=== PATIENT | female | born 2000 | race Caucasian/White ===

== ENCOUNTER → 2021-05-23 12:29 | Outpatient (CLI) | payer OTHER, SELFPAY ==
--- NOTE | 2021-05-23 12:34 | DI.US.S_ITS ---
PROCEDURE: US OB <= 14 WEEKS FETUS INDICATIONS: DATING AND VIABILITY OUTSIDE/PRIOR DATING DATA: Last menstrual period (LMP): 03/05/2021 LMP-based estimated date of delivery (JANESSA): 12/10/2021 First dating scan (date and location): 05/23/2021 Estimated date of delivery (JANESSA) from first dating scan: 12/25/2021. TECHNIQUE: Real-time scanning was performed of the fetus and maternal pelvic organs, with image documentation. COMPARISON: None. FINDINGS: Embryo: A single live intrauterine is seen. The measured heart rate is 182 beats per minute. The crown-rump length measures 2.4 cm, corresponding to an estimated gestational age of 9 weeks 1 day. It is too early for detailed anatomic assessment. By visual inspection, the amount of amniotic fluid is within normal limits. No significant findings of subchorionic/perigestational hemorrhage are seen. Measurement variability in dating: +/- 4 weeks by LMP, +/- 7 days by mean sac diameter (use before 6 weeks gestation if crown-rump length not able to be measured), +/- 5 days by crown-rump length (up to 8 weeks 6 days gestation), +/- 7 days by crown-rump length (up to 13 weeks 6 days gestation). Maternal organs: Ovaries are within normal limits, with a presumed corpus luteum seen on the right. IMPRESSION: A single live intrauterine is seen. There is an approximately 2 week discrepancy between the estimated gestational age based upon these images and the estimated gestational age based upon the given date of last menstrual period. Please correlate with precise clinical data. Close clinical followup, with serial beta-hCG and serial ultrasound are recommended, if clinically appropriate. Dictated by: Elie Wall M.D. on 05/23/2021 at 12:40 Approved by: Elie Wall M.D. on 05/23/2021 at 12:41
== END ==
PROVIDERS: Referring Provider Obstetrics & Gynecology; Visit Provider Obstetrics & Gynecology
DX: Z36.87 Encounter for antenatal screening for uncertain dates (principal); Z3A.09 9 weeks gestation of pregnancy
CPT/HCPCS: 76801; 76817

== ENCOUNTER → 2021-06-03 17:07 | Outpatient (CLI) | payer OTHER, SELFPAY ==
[2021-06-03 17:30] LABS: Appearance Urine UA CLEAR; Bilirubin Urine UA NEGATIVE (NEGATIVE); Color Urine UA YELLOW; Glucose Urine UA NEGATIVE (Negative); Ketones Urine UA NEGATIVE (NEGATIVE); Leukocyte Esterase Urine UA NEGATIVE (NEGATIVE); Nitrite Urine UA NEGATIVE (Negative); Occult Blood Urine UA TRACE-LYSED (Negative); Protein Urine UA NEGATIVE (Negative); Specific Gravity Urine UA 1.025 (1.000-1.035); Urobilinogen Urine UA 0.2 E.U./dL (0.2)
[2021-06-03 18:45] LABS: Add Manual Diff / Slide Review NO; Basophils Absolute Auto 0 /uL (0-100); Basophils Percent Auto 0.3 % (0-2); Eosinophils Absolute Auto 200 /uL (0-450); Eosinophils Percent Auto 1.9 % (2-4); Hematocrit 40.1 % (36-46); Hemoglobin 13.8 g/dL (12.0-16.0); Lymphocytes Absolute Auto 2100 /uL (1100-4500); Mean Corpuscular HGB Conc 34.4 % (30-36); Mean Corpuscular Volume 87.1 fL (80-100); Monocytes Absolute Auto 700 /uL (0-900); Monocytes Percent Auto 7.2 % (3-14); Neutrophils Absolute Auto 6600 /uL (1500-7000); Neutrophils Percent Auto 68.6 % (50-75); Platelet Count 293 X10^3/uL (150-400); Red Blood Cell Count 4.61 X10^6/uL (4.0-5.2); Red Cell Distribution Width 13.7 % (11.6-14.8); White Blood Cell Count 9.6 X10^3/uL (4.5-11.0)
[2021-06-03 18:55] LABS: Hepatitis B Surface Antigen NEGATIVE s/c (NEGATIVE); Rubella Antibody IgG 5.9 IU/mL (>15)
[2021-06-03 19:08] LABS: HIV 1 & 2 Ab/Ag 4th Gen Combo NEGATIVE (NEGATIVE); Hep C Virus Ab w/Reflex Quant NEGATIVE s/c (NEGATIVE)
[2021-06-04 08:28] LABS: RPR Screen Non Reactive (Non Reactive)
[2021-06-04 11:27] LABS: Varicella IgG Antibody 997 index (Immune >165)
== END ==
PROVIDERS: Referring Provider Obstetrics & Gynecology; Visit Provider Obstetrics & Gynecology
DX: Z34.01 Encounter for supervision of normal first pregnancy, first trimester (principal)
CPT/HCPCS: 36415; 80055; 81003; 86787; 86803; 86850; 86900; 86901; 87086; 87389

== ENCOUNTER → 2021-07-01 09:13 | Outpatient (CLI) | payer OTHER, MEDICAID, SELFPAY | PROVIDERS: Visit Provider Obstetrics & Gynecology | DX: R39.9 Unspecified symptoms and signs involving the genitourinary system (principal) | CPT/HCPCS: 87086 ==

== ENCOUNTER → 2021-08-05 13:20 | Outpatient (ROUT) | payer OTHER, MEDICAID, SELFPAY ==
[2021-08-05 15:03] LABS: Urine N gonorrhoeae NOT DETECTED
[2021-08-05 15:35] LABS: Urine Chlamydia NOT DETECTED
== END ==
PROVIDERS: Visit Provider Obstetrics & Gynecology
DX: Z34.01 Encounter for supervision of normal first pregnancy, first trimester (principal); Z3A.19 19 weeks gestation of pregnancy
CPT/HCPCS: 87491; 87591

== ENCOUNTER → 2021-08-12 14:07 | Outpatient (CLI) | payer OTHER, MEDICAID, SELFPAY ==
--- NOTE | 2021-08-12 14:07 | DI.US.S_ITS ---
PROCEDURE: US OB >= 14 WEEKS FETUS INDICATIONS: ANATOMY SCAN OUTSIDE/PRIOR DATING DATA: Last menstrual period (LMP): 03/05/2021 . LMP-based estimated date of delivery (JANESSA): 12/10/2021 . First dating scan (date and location): 7821 Estimated date of delivery (JANESSA) from first dating scan: 12/25/2021 . TECHNIQUE: Real-time scanning was performed of the fetus, with image documentation and biometric measurements. COMPARISON: [facility], OB <= 14 WEEKS FETUS, 06/03/2021, 17:01. [facility] OB <= 14 WEEKS FETUS, 05/23/2021, 11:56. [facility], OB >= 14 WEEKS FETUS, 08/05/2021, 8:34. FINDINGS: General: A single living intrauterine gestation is present. Presentation: Breech. Placenta: Placental position is posterior , without previa. Amniotic fluid index: 13.7 cm, normal range is 5-24 cm. heart rate: 150 beats per minute. Maternal cervical canal: 4.0 cm long. Normal lower limit is 2.5 cm. biometrics: Biparietal diameter: 4.6 cm 19 weeks 6 days Head circumference: 17.5 cm 20 weeks 0 days Abdominal circumference: 14.9 cm 20 weeks 1 day Femur length: 3.2 cm 20 weeks 1 day Estimated gestational age from initial scan: 20 weeks 5 days Composite gestational age from present scan: 20 weeks 0 days Estimated weight and percentile: 333 g 17th percentile Measurement variability for biometric dating: +/- 7 days from 14 weeks to 15 weeks 6 days gestation, +/- 10 days from 16 weeks to 21 weeks 6 days gestation, +/- 2 weeks from 22 weeks to 27 weeks 6 days gestation, +/- 3 weeks for 28 weeks gestation or later. weight reference: 4500 g or EFW >90/95% is considered macrosomia or large for gestational age. EFW <10% is small for gestational age. EFW 5% or less is considered intra-uterine growth restriction. Anatomic survey: Neuro: Ventricles are non-dilated at less than 10 mm. Cisterna magna is normal at 3-11 mm. Cerebellum is normal in size and morphology. Nuchal skin fold: Normal at less than 6 mm between 14-21 weeks gestational age. Face: Nose and lips, facial profile are not well visualized. Spine: No evidence for spina bifida. Heart: 4-chambered heart and ventricular outflow tracts are not well visualized.. Diaphragm: Diaphragm is intact. Stomach: Left-sided stomach is present. Kidneys: No hydronephrosis. Normal is less than 5 mm in 2nd trimester, less than 7 mm in 3rd trimester. Cord: 3-vessel cord has what appears to be an eccentric cord insertion approximately 3.1 cm from the placental edge. Bladder: Normal in size. Extremities: All 4 extremities identified. IMPRESSION: 1. Single live intrauterine . 2. Facial profile, nose/lips as well as 4 chambered heart and outflow tracts are not well seen. Recommend interval follow-up for further evaluation. 3. Cord insertion appears to be eccentric approximately 3.1 cm from the placental edge. Interval follow-up is recommended. Dictated by: Wanda Silvestre M.D. on 08/12/2021 at 16:09 Approved by: Wanda Silvestre M.D. on 08/12/2021 at 16:13
== END ==
PROVIDERS: Referring Provider Obstetrics & Gynecology; Visit Provider Obstetrics & Gynecology
DX: Z34.02 Encounter for supervision of normal first pregnancy, second trimester (principal); Z3A.20 20 weeks gestation of pregnancy
CPT/HCPCS: 76811

== ENCOUNTER → 2021-10-14 11:59 | Outpatient (CLI) | payer OTHER, MEDICAID, SELFPAY ==
[2021-10-14 14:55] LABS: Hematocrit 29.3 % (36-46); Hemoglobin 10.1 g/dL (12.0-16.0)
[2021-10-14 15:13] LABS: GTT (PREG) 1 Hour PP 50gm Dose 135 mg/dL (76-139)
== END ==
PROVIDERS: Referring Provider Obstetrics & Gynecology; Visit Provider Obstetrics & Gynecology
DX: Z34.02 Encounter for supervision of normal first pregnancy, second trimester (principal); Z3A.26 26 weeks gestation of pregnancy
CPT/HCPCS: 36415; 82950; 85014; 85018

== ENCOUNTER → 2021-12-02 15:56 | Outpatient (CLI) | payer OTHER, MEDICAID, SELFPAY ==
[2021-12-03 12:10] LABS: Strep Grp B PCR NEG for Grp B Strep
== END ==
PROVIDERS: Referring Provider Obstetrics & Gynecology; Visit Provider Obstetrics & Gynecology
DX: Z34.03 Encounter for supervision of normal first pregnancy, third trimester (principal); Z3A.36 36 weeks gestation of pregnancy
CPT/HCPCS: 87653

== ENCOUNTER 2021-12-09 15:03 | Outpatient (CLI) | payer OTHER, MEDICAID, SELFPAY | END 2021-12-09 15:55 | disposition home or self-care (01) | LOC: OB 12-10 07:34 | PROVIDERS: Referring Provider Obstetrics & Gynecology; Visit Provider Obstetrics & Gynecology | DX: O36.8130 Decreased fetal movements, third trimester, not applicable or unspecified (principal); Z3A.37 37 weeks gestation of pregnancy | CPT/HCPCS: 59025; G0378; G0379 ==

== ENCOUNTER → 2021-12-16 13:48 | Outpatient (CLI) | payer OTHER, MEDICAID, SELFPAY ==
[2021-12-16 14:34] LABS: COVID19 -Nasal RAPID Negative (Negative)
== END ==
PROVIDERS: PCP Physician Assistant; Referring Provider Obstetrics & Gynecology; Visit Provider Obstetrics & Gynecology
DX: Z01.812 Encounter for preprocedural laboratory examination (principal); Z20.822 Contact with and (suspected) exposure to COVID-19
CPT/HCPCS: 87635

== ENCOUNTER 2021-12-19 05:59 | Inpatient (IN) | payer OTHER, MEDICAID, SELFPAY ==
[2021-12-19 06:32] VITALS: BP 134/91
[2021-12-19 07:08] LABS: COVID19 -Nasal RAPID Negative (Negative)
--- NOTE | 2021-12-19 07:17 | SUR.OPER ---
Supine on Padded OR bed, head on pillow, safety belt at thigh, arms secured on padded arm boards at <90 degrees abduction. Bump under right buttock. Legs uncrossed with pillow under knees, gel pad to heels, tape over blanket to lower legs.
[2021-12-19] MEDS: ACETAMINOPHEN 325 MG TABLET 975 MG PO (07:52)
[2021-12-19] MEDS: CITRIC ACID/SODIUM CITRATE 15 ML SOLUTION 30 ML PO (07:52)
--- NOTE | 2021-12-19 08:29 | PM.HP.1 ---
History of Present Illness History of Present Illness Date Patient Seen: 12/19/21 Time Patient Seen: 08:29 Chief complaint: PRIMARY Narrative: Patient is a 21-year-old 1 para 0 at 39 weeks gestation who presents for a scheduled primary section at patient request. Patient History Medical History (Updated 08/31/21 @ 06:24 by Humera Terrazas MD) Anxiety Asthma Concussion Gastric peptic ulcer History of being hospitalized Hx of migraines Kidney infection (~2018) Kidney stones (~2018) Pneumonia (~1997) Reactive airway disease Right ovarian cyst (~03/2020) Toes fractured Tremors of nervous system (~03/2021) UTI (urinary tract infection) (~2018) Surgical History (Updated 05/27/21 @ 10:43 by Linh Gonzalez RN) S/P wisdom tooth extraction Family & Social History Family History (Updated 05/27/21 @ 10:51 by Linh Gonzalez RN) Father H/O alcohol dependence Mother Mental health problem Eczema Carpal tunnel syndrome Grandfather Diabetes mellitus Cancer Prostate cancer CVA (cerebral vascular accident) Family disruption due to marital estrangement Grandmother Heavy smoker Spina bifida Diabetes mellitus Grandfather Hypertension Hyperlipidemia Diabetes mellitus Myocardial infarction Cardiac anomaly Grandmother Cancer Late gastric cancer Sister Hypertension induced hypertension Carpal tunnel syndrome Eczema Sister Spina bifida Eczema Brother Asthma Obesity Family/Other Obesity H/O alcohol dependence Hypertension Family/Other Myocardial infarction Social History: household members significant other lives independently Yes Tobacco & Substance use: Smoking Status Never smoker alcohol intake former Meds Home Medications and Allergies Home Medications Medication Instructions Recorded Confirmed Type prenat.vits,noemi,gij-ubnn-ejkdp 1 tab PO DAILY 06/03/21 12/16/21 History Allergies Allergy/AdvReac Type Severity Reaction Status Date / Time [place] And Derivatives AdvReac Intermediate Lips Verified 12/16/21 13:47 swollen and burning. Hives. Exam Vital Signs (past 8 hours): - 12/19/21 06:32 Blood Pressure 134/91 H Narrative Exam Narrative: HEENT: No thyromegaly, no anterior cervical or supraclavicular lymphadenopathy. Lungs:Clear to auscultation bilaterally, no wheezes. Cardiovascular: Regular rate and rhythm, no murmurs, rubs, or gallops. Abdomen: No scars. No hepatosplenomegaly. No masses palpable. Fundal height: 39 cm. Estimated weight 7-1/2 lb External genitalia: Normal Vagina: Normal Cervix: Normal Extremities: No edema, 1+ DTRs Objective Labs Labs: Laboratory Results - last 24 hr 12/19/21 06:35 SARS-CoV-2 (PCR) Negative Assessment & Plan Assessment & Plan narrative: Assessment: 21-year-old 1 para 0 at 39 weeks gestation who desires a primary section for mode of delivery Plan: Primary low-transverse section The risks, benefits, and alternatives to the procedure were explained to the patient. The risks including bleeding, infection, injury to the bowel, bladder, or ureters. She understands these risks and agrees to proceed. A full par Q was held and consent form was signed. COVID-19 COVID-19 status: Negative Result date/Date tested (Pos, Neg/Pending): 12/19/21 Time Spent With Patient Time with patient: less than 30 minutes Critical Care time: I spent a total of [] minutes of critical care time on this patient's care today; this time is exclusive of procedural time.
[2021-12-19] MEDS: LACTATED RINGERS 1,000 ML 1000 ML IV (08:31)
--- NOTE | 2021-12-19 08:31 | PM.PREOP ---
Pre-operative Note COVID-19 COVID-19 status: Negative Result date/Date tested (Pos, Neg/Pending): 12/19/21 Criteria for continued procedure: Deterioration of the patient's condition or overall health Interval Note History & Physical reviewed/Exam performed by Physician: Yes Changes to H&P: No H&P completed within 30 days and has changed as indicated here:: 12/19/21
[2021-12-19] MEDS: CEFAZOLIN 2 GM/20 ML SYRINGE IV ×2 (08:53→09:16)
--- NOTE | 2021-12-19 09:21 | SUR.OPER ---
Viable female delivered via section at 09:07. Cord blood vials x2 and placenta sent with L&D RN.
[2021-12-19 09:46] VITALS: BP 109/62; PULSE 72; RESP 14; TEMP 36.3; O2SAT 100
[2021-12-19 09:47] LABS: Add Manual Diff / Slide Review NO; Basophils Absolute Auto 0 /uL (0-100); Basophils Percent Auto 0.3 % (0-2); Eosinophils Absolute Auto 300 /uL (0-450); Eosinophils Percent Auto 3.3 % (2-4); Hematocrit 34.8 % (36-46); Hemoglobin 11.9 g/dL (12.0-16.0); Lymphocytes Absolute Auto 2600 /uL (1100-4500); Lymphocytes Percent Auto 24.5 % (25-40); Mean Corpuscular HGB Conc 34.1 % (30-36); Mean Corpuscular Hemoglobin 28.3 PG (26-34); Monocytes Absolute Auto 900 /uL (0-900); Monocytes Percent Auto 8.1 % (3-14); Neutrophils Absolute Auto 6700 /uL (1500-7000); Neutrophils Percent Auto 63.8 % (50-75); Platelet Count 187 X10^3/uL (150-400); Red Blood Cell Count 4.19 X10^6/uL (4.0-5.2); Red Cell Distribution Width 18.7 % (11.6-14.8); White Blood Cell Count 10.5 X10^3/uL (4.5-11.0)
[2021-12-19] MEDS: LACTATED RINGERS 1,000 ML 120 ML IV (09:50)
[2021-12-19 09:51] VITALS: BP 104/54; PULSE 77; RESP 16; O2SAT 99
[2021-12-19 09:56] VITALS: BP 116/52; PULSE 75; RESP 11; O2SAT 100
--- NOTE | 2021-12-19 09:57 | PM.OBCS.1 ---
Operative Date/Time/Diagnoses Date of procedure: 12/19/21 Time of procedure: 09:57 Pre-op diagnosis: Thirty-nine weeks gestation Desires primary section Post-op diagnosis: same Procedure & Clinicians Procedure: Primary low-transverse section Same procedure as scheduled: Yes Indications: 39 weeks gestation Desires primary section Surgeon: Humera Figueroa Yes if Unassisted: No Embossing Toolsetter: Emerald Kramer Reason for Embossing Toolsetter: Embossing Toolsetter was required for retraction, clipping of suture, assist in delivery of the baby, and closure of the contralateral fascia Anesthesia Type: Spinal (With Duramorph) Operative Notes Findings: Live female infant in the direct occiput posterior presentation Double nuchal cord Closure Type: primary Specimen(s): cord blood and placenta Intraoperative meds administered: Acetaminophen, Duramorph, Ketorolac and Pitocin Applied: Catheter Estimated Blood Loss (mL): 400 Blood products transfused: none Procedure in detail: The patient was taken to the operating room where she was placed in the seated position. Spinal anesthesia with Duramorph was administered. She was then placed in the dorsal supine position with a leftward tilt. She was prepped and draped in the usual sterile fashion. A timeout was performed. After spinal analgesia was found to be adequate, a Pfannenstiel skin incision was made 2 fingerbreadths above the pubic symphysis and carried through to the underlying layer fascia. The fascia was nicked in the midline, and the incision extended bilaterally with the Fry scissors. The superior aspect of the fascial incision was grasped with a [place] clamps, elevated, and the underlying rectus muscles dissected off sharply and bluntly. Attention was then turned to the inferior aspect of this incision which in a similar fashion was grasped with a [place] clamps, elevated, and the underlying rectus muscles dissected off sharply and bluntly. The rectus muscles were in the midline. The peritoneum was identified, grasped between 2 hemostats, and entered sharply with the Metzenbaum scissors. This incision was extended superiorly and inferiorly with good visualization of the bladder. The bladder blade was inserted. The vesicouterine peritoneum was identified, grasped with the pickup, and entered sharply with the Metzenbaum scissors. This incision was extended bilaterally, and the bladder flap was created digitally. The bladder blade was reinserted. The lower uterine segment was incised in a transverse fashion with the scalpel. Upon entering the amniotic sac there was a small amount of clear amniotic fluid. The infant's head was delivered with vacuum assistance. The nose and mouth were suctioned with bulb suction. The remainder of the body delivered without difficulty. The cord was double clamped and cut after 1 minute. The was handed off to waiting RN and RT. The placenta was delivered manually. The uterus was cleared of all clots and debris. The uterine incision was repaired with #1 chromic in a running interlocking fashion, and a second layer the same suture was used for an imbricating layer. Hemostasis was achieved. The tubes and ovaries were examined and were found to be normal. The gutters were cleared of all clots and debris. The bladder flap was reapproximated using 2-0 Vicryl in a running fashion. The parietal peritoneum was closed using 2-0 Vicryl in a running fashion. The fascia was reapproximated using 0 Vicryl in a running fashion. Subcutaneous layer was copiously irrigated with warm normal saline. 5 simple interrupted sutures of 3-0 Vicryl were placed to reapproximate the subcutaneous layer. The skin was closed with 4-0 Monocryl in a subcuticular fashion. Steri-Strips were placed. An Aquacel dressing was placed. The uterus was expressed of a small amount of old blood. Sponge, lap, and instrument counts were correct x-2. The patient tolerated the procedure well, and was taken to PACU in stable condition. Complications: none [place] Baby 1: Gender: Female Presentation: vertex Position: Occiput Posterior Placental Delivery Description: Spontaneous and Manual Removal Cord Vessel Description: 3 Vessels and Nuchal Cord (X2) score (1 min): 8 score (5 min): 9 weight: 9 lb 3 oz Post-operative Condition: stable Disposition: PACU Aftercare: routine postop
[2021-12-19 10:01] VITALS: BP 108/47; PULSE 75; RESP 14; TEMP 36.3; O2SAT 100
--- NOTE | 2021-12-19 10:26 | SUR.PHASEI ---
Patient transferred to Center by this Rn in bed with stable VS and request to go and see baby SPENCER. SBAR repot at bedside Da Rn and Cherelle RN with fundal check and negar-pad check. Bed locked, dad and mom at bedside with baby.
[2021-12-19] MEDS: KETOROLAC 30 MG/ML VIAL IV ×2 (16:00→21:58)
[2021-12-19] MEDS: ACETAMINOPHEN 325 MG TABLET 650 MG PO ×2 (16:05→21:57)
[2021-12-19] MEDS: LACTATED RINGERS 1,000 ML 100 ML IV (16:37)
[2021-12-20] MEDS: KETOROLAC 30 MG/ML VIAL IV (03:57)
[2021-12-20] MEDS: ACETAMINOPHEN 325 MG TABLET 650 MG PO ×2 (03:58→11:36)
[2021-12-20 07:09] LABS: Hematocrit 30.1 % (36-46); Hemoglobin 10.5 g/dL (12.0-16.0)
[2021-12-20 10:42] VITALS: BP 118/76; PULSE 87; RESP 16; TEMP 36.7
[2021-12-20] MEDS: IBUPROFEN 600 MG TABLET PO (11:35)
[2021-12-20] MEDS: PRENATAL VIT,CALC/IRON/FOLIC 1 TABLET 1 TAB PO (11:36)
[2021-12-20] MEDS: DOCUSATE 100 MG CAPSULE 200 MG PO (11:36)
--- NOTE | 2021-12-20 12:43 | P.PNOB_ITS ---
Subjective - OB Subjective Patient comments: no complaints, pain well controlled, tolerating diet and flatus present baby status: doing well and nursing well [place] feeding status: exclusively breast feeding Date Patient Seen: 12/20/21 Time Patient Seen: 12:44 Interval history: Patient is a 21-year-old 1 para 1 who presented on December 19, 2021 for a scheduled primary low-transverse section. She underwent this procedure without complication. Her course was unremarkable and she is discharged to home on day # 1. She is tolerating a diet. going well. Her pain is well controlled. No nausea or vomiting. And she is voiding without the catheter. She is to follow-up in 1 week for an Aquacel dressing removal. Exam Vital Signs (past 8 hours): - 12/20/21 10:42 Temperature 98.0 F Pulse Rate 87 Respiratory Rate 16 Blood Pressure 118/76 Oxygen Delivery Method Room Air Narrative Exam Narrative: Generally: Patient is sitting up in chair, no acute distress Lungs: Clear to auscultation bilaterally Cardiovascular: Regular rate and rhythm Fundus: Firm at U Incision: Clean dry and intact with Aquacel dressing Extremities: Trace edema, negative [place] Objective Labs Result Diagrams: 12/20/21 06:30 Labs: Laboratory Results - last 24 hr 12/20/21 06:30 Hgb 10.5 L Hct 30.1 L Assessment & Plan Plan day: 1 plan OB: discharge home Comments: Follow-up 1 week for Aquacel dressing removal Follow-up [address] Terrazas for 6 week exam Time Spent With Patient Time: Total time spent is greater than 50% in coordination of care (as documented) at patient's floor/unit and/or counseling patient: Time with patient: 15-24 minutes
== END 2021-12-20 13:00 | disposition home or self-care (01) | DRG 788 ==
PROVIDERS: Admitting Provider Obstetrics & Gynecology; PCP Physician Assistant; Referring Provider Obstetrics & Gynecology; Visit Provider Obstetrics & Gynecology
PROC: 10D00Z1 Extraction of Products of Conception, Low, Open Approach (ICD-10-PCS; CPT 59514; principal; 2021-12-19 07:45)
DX: O99.513 Diseases of the respiratory system complicating pregnancy, third trimester (principal); J45.909 Unspecified asthma, uncomplicated; Z3A.39 39 weeks gestation of pregnancy; Z37.0 Single live birth; Z20.822 Contact with and (suspected) exposure to COVID-19
CPT/HCPCS: 36415; 59050; 59510; 59514; 85014; 85018; 85025; 86850; 86900; 86901; 87635; C9803; J0690; J1885; J2274; J2590

== ENCOUNTER → 2024-10-26 09:17 | Outpatient (CLI) | payer OTHER, MEDICAID, SELFPAY ==
[2024-10-26 11:45] LABS: HCG Quantitative /Beta subunit 1396.2 mIU/mL
== END ==
PROVIDERS: PCP Physician Assistant; Referring Provider Obstetrics & Gynecology; Visit Provider Obstetrics & Gynecology
DX: Z87.59 Personal history of other complications of pregnancy, childbirth and the puerperium (principal)
CPT/HCPCS: 36415; 84702

== ENCOUNTER → 2024-10-28 10:32 | Outpatient (CLI) | payer OTHER, MEDICAID, SELFPAY ==
[2024-10-28 11:44] LABS: HCG Quantitative /Beta subunit 2714.6 mIU/mL
== END ==
PROVIDERS: PCP Physician Assistant; Referring Provider Obstetrics & Gynecology; Visit Provider Obstetrics & Gynecology
DX: Z87.59 Personal history of other complications of pregnancy, childbirth and the puerperium (principal)
CPT/HCPCS: 36415; 84702

== ENCOUNTER → 2024-11-23 11:37 | Outpatient (CLI) | payer OTHER, SELFPAY ==
[2024-11-23 14:47] LABS: Urine N gonorrhoeae NOT DETECTED
[2024-11-23 14:48] LABS: Urine Chlamydia NOT DETECTED
== END ==
PROVIDERS: PCP Physician Assistant; Visit Provider Specialist
DX: Z11.3 Encounter for screening for infections with a predominantly sexual mode of transmission (principal); Z34.81 Encounter for supervision of other normal pregnancy, first trimester
CPT/HCPCS: 87491; 87591

== ENCOUNTER → 2024-12-01 11:59 | Outpatient (CLI) | payer OTHER, SELFPAY ==
[2024-12-01 12:38] LABS: Add Manual Diff / Slide Review NO; Basophils Absolute Auto 0 /uL (0-100); Basophils Percent Auto 0.3 % (0-2); Eosinophils Absolute Auto 100 /uL (0-450); Eosinophils Percent Auto 1.3 % (2-4); Hemoglobin 12.2 g/dL (12.0-16.0); Lymphocytes Absolute Auto 2500 /uL (1100-4500); Lymphocytes Percent Auto 29.8 % (25-40); Mean Corpuscular HGB Conc 33.8 % (30-36); Mean Corpuscular Hemoglobin 26.6 PG (26-34); Mean Corpuscular Volume 78.6 fL (80-100); Monocytes Absolute Auto 600 /uL (0-900); Monocytes Percent Auto 6.9 % (3-14); Neutrophils Absolute Auto 5100 /uL (1500-7000); Neutrophils Percent Auto 61.7 % (50-75); Platelet Count 321 X10^3/uL (150-400); Red Blood Cell Count 4.59 X10^6/uL (4.0-5.2); White Blood Cell Count 8.3 X10^3/uL (4.5-11.0)
[2024-12-01 12:47] LABS: Anisocytosis 1+
[2024-12-01 16:53] LABS: Hepatitis B Surface Antigen NEGATIVE s/c (NEGATIVE)
[2024-12-01 17:13] LABS: HIV 1 & 2 Ab/Ag 4th Gen Combo NEGATIVE (NEGATIVE); Hep C Virus Ab w/Reflex Quant NEGATIVE s/c (NEGATIVE)
== END ==
PROVIDERS: Obstetrics & Gynecology; Referring Provider Specialist; Visit Provider Specialist
DX: Z34.81 Encounter for supervision of other normal pregnancy, first trimester (principal)
CPT/HCPCS: 36415; 80055; 86787; 86803; 86850; 86900; 86901; 87389

== ENCOUNTER → 2025-02-10 08:28 | Outpatient (CLI) | payer OTHER, SELFPAY ==
--- NOTE | 2025-02-10 08:29 | DI.US.S_ITS ---
PROCEDURE: US OB >= 14 WEEKS FETUS INDICATIONS: ANATOMY OUTSIDE/PRIOR DATING DATA: Last menstrual period (LMP): 09/22/2024 LMP-based estimated date of delivery (JANESSA): 06/29/2025 First dating scan (date and location): 11/23/2024 Estimated date of delivery (JANESSA) from first dating scan: Report not available The calculations are made using the JANESSA of 06/29/2025. TECHNIQUE: Real-time scanning was performed of the fetus, with image documentation and biometric measurements. Endovaginal scanning: Not performed COMPARISON: [facility], , OB <= 14 WEEKS FETUS, 11/23/2024, 11:40. [facility], OB <= 14 WEEKS FETUS, 12/22/2024, 12:13. [facility], , OB >= 14 WEEKS FETUS, 10/21/2021, 16:38. FINDINGS: General: A single living intrauterine gestation is present. Presentation: Vertex Placenta: Placental position is anterior, without previa. Amniotic fluid index: 11.9 cm, normal range is 5-24 cm. Single deepest vertical pocket is 4.8 cm. heart rate: 152 beats per minute. Maternal cervical canal: 4.4 cm long. Normal lower limit is 2.5 cm. biometrics: Biparietal diameter: 4.4 cm, 19 weeks 3 days Head circumference: 16.6 cm, 19 weeks 2 days Abdominal circumference: 14.5 cm, 19 weeks 6 days Femur length: 3.3 cm, 20 weeks 3 days Clinically estimated gestational age: 20 weeks 1 day Composite gestational age from present scan: 19 weeks 5 days Estimated weight and percentile: 326 g, 37th percentile Anatomic survey: Neuro: Ventricles are non-dilated at less than 10 mm. Cisterna magna is normal at 3-11 mm. Cerebellum is normal in size and morphology. Nuchal skin fold: Normal at less than 6 mm between 14-21 weeks gestational age. Face: Nose and lips, facial profile are normal. Spine: No evidence for spina bifida. Heart: 4-chambered heart is present, with normal ventricular outflow tracts. Diaphragm: Diaphragm is intact. Stomach: Left-sided stomach is present. Kidneys: No hydronephrosis. Normal is less than 5 mm in 2nd trimester, less than 7 mm in 3rd trimester. Cord: 3-vessel cord has orthotopic insertion. Bladder: Normal in size. Extremities: All 4 extremities identified. IMPRESSION: 1. Single live intrauterine with appropriate interval growth. 2. anatomic survey is within normal limits. Approved by: Darius Huerta M.D. on 02/10/2025 at 16:17
== END ==
LOC: US 08:28
PROVIDERS: Referring Provider Obstetrics & Gynecology; Visit Provider Obstetrics & Gynecology
DX: Z36.89 Encounter for other specified antenatal screening (principal); Z3A.19 19 weeks gestation of pregnancy
CPT/HCPCS: 76811

== ENCOUNTER → 2025-02-16 10:55 | Outpatient (CLI) | payer OTHER, SELFPAY | PROVIDERS: Referring Provider Specialist; Visit Provider Specialist | DX: Z34.82 Encounter for supervision of other normal pregnancy, second trimester (principal); Z3A.21 21 weeks gestation of pregnancy | CPT/HCPCS: 36415; 82105 ==

== ENCOUNTER → 2025-03-16 14:21 | Outpatient (CLI) | payer OTHER, SELFPAY ==
[2025-03-16 16:36] LABS: Hematocrit 31.5 % (36-46); Hemoglobin 11.3 g/dL (12.0-16.0)
[2025-03-16 16:47] LABS: GTT (PREG) 1 Hour PP 50gm Dose 108 mg/dL (76-139)
== END ==
PROVIDERS: Referring Provider Specialist; Visit Provider Specialist
DX: Z34.92 Encounter for supervision of normal pregnancy, unspecified, second trimester (principal); Z3A.26 26 weeks gestation of pregnancy
CPT/HCPCS: 36415; 82950; 85014; 85018

== ENCOUNTER → 2025-05-30 14:17 | Outpatient (CLI) | payer OTHER, SELFPAY | PROVIDERS: Visit Provider Obstetrics & Gynecology | DX: Z34.83 Encounter for supervision of other normal pregnancy, third trimester (principal); Z3A.35 35 weeks gestation of pregnancy | CPT/HCPCS: 87086 ==

== ENCOUNTER 2025-06-09 15:01 | Outpatient (CLI) | payer OTHER, SELFPAY ==
[2025-06-09 16:20] LABS: Appearance Urine UA CLEAR; Bilirubin Urine UA NEGATIVE (NEGATIVE); Color Urine UA YELLOW; Glucose Urine UA 3+ g/dL (Negative); Ketones Urine UA 1+ (NEGATIVE); Leukocyte Esterase Urine UA NEGATIVE (NEGATIVE); Nitrite Urine UA NEGATIVE (Negative); Occult Blood Urine UA NEGATIVE (Negative); Protein Urine UA NEGATIVE (Negative); Specific Gravity Urine UA 1.015 (1.000-1.035); Urobilinogen Urine UA 1.0 E.U./dL (0.2)
[2025-06-09 16:21] LABS: pH Urine UA 6.0 (4.5-8.0)
[2025-06-09 16:27] LABS: Culture Indicated Urine Cult Not Indicated
== END 2025-06-09 16:38 | disposition home or self-care (01) ==
LOC: OB 06-12 08:39
PROVIDERS: PCP Physician Assistant; Referring Provider Obstetrics & Gynecology; Visit Provider Obstetrics & Gynecology
DX: O26.893 Other specified pregnancy related conditions, third trimester (principal); N89.8 Other specified noninflammatory disorders of vagina; R10.2 Pelvic and perineal pain; Z3A.37 37 weeks gestation of pregnancy
CPT/HCPCS: 59025; 81001; G0378; G0379

== ENCOUNTER → 2025-06-14 14:57 | Outpatient (CLI) | payer OTHER, SELFPAY ==
[2025-06-15 15:30] LABS: Strep Grp B PCR NEG for Grp B Strep
== END ==
PROVIDERS: PCP Physician Assistant; Visit Provider Obstetrics & Gynecology
DX: Z34.83 Encounter for supervision of other normal pregnancy, third trimester (principal); Z3A.37 37 weeks gestation of pregnancy
CPT/HCPCS: 87653

== ENCOUNTER 2025-06-22 05:35 | Inpatient (IN) | payer OTHER, SELFPAY ==
--- NOTE | 2025-06-22 | PATH_ITS ---
[facility] Accession Number: [id number] No. of containers..01 Tissue . 01 Material submitted: . fallopian tube - BILATERAL FALLOPIAN TUBES . 01 Diagnosis: BILATERAL FALLOPIAN TUBES: First-described fallopian tube, complete cross-sections; negative for significant atypia. Second-described fallopian tube, complete cross-sections; negative for significant atypia. [facility] 06/28/2025 1501 Local . 01 Electronically signed: . Babs Trinidad MD, Pathologist NPI- [id number] . 01 Gross description: . Received in formalin with two identifiers and bilateral fallopian tubes, are two undesignated fallopian tubes. The first fallopian tube is 8.5 cm long by 0.5 cm in diameter. The second fallopian tube is 8.2 cm long by 0.5 cm in diameter. The serosa is purple-dutta and smoth. The cut surfaces are brown with a pinpoint lumen. Parachutist/Combatant Diver Qualified sections are submitted as follows: A1: First fallopian tube with entire fimbriated end. A2: Second fallopian tube with entire fimbriated end. ([id number]) /MARTIN 06/23/2025 1928 Local . 01 Pathologist provided ICD-10: Z30.2 . 01 CPT . 112474 Specimen Comment: A courtesy copy of this report has been sent to [phone] Performed at: [address] [id number] MD Roosevelt Florez MD Phone: [phone]
[2025-06-22] MEDS: LACTATED RINGERS 1,000 ML 999 ML IV ×2 (06:15→07:45)
[2025-06-22 06:33] VITALS: BP 118/78
[2025-06-22 06:45] LABS: Add Manual Diff / Slide Review NO; Hematocrit 34.6 % (36-46); Hemoglobin 12.5 g/dL (12.0-16.0); Lymphocytes Absolute Auto 2000 /uL (1100-4500); Mean Corpuscular HGB Conc 36.0 % (30-36); Mean Corpuscular Hemoglobin 32.6 PG (26-34); Mean Corpuscular Volume 90.7 fL (80-100); Platelet Count 192 X10^3/uL (150-400)
--- NOTE | 2025-06-22 07:24 | PM.OBHP.IH.1 ---
OB HPI Date/Time Date of admission: 06/22/25 Date Patient Seen: 06/22/25 Time Patient Seen: 07:05 History of Present Condition Chief complaint: Repeat , scar revision, kendy salpingectomy JANESSA Calculator Estimated Delivery Date Method Current WG Current Estimate 06/29/25 LMP (Certain) 39w 0d Other Estimates 07/01/25 Ultrasound #1 38w 5d Estimated Gestational Age (weeks): 39 : 3 Para: 1 care: good care, initiated at week # (8), number of visits (10) and pounds weight gain (47) Dating criteria OB: LMP confirmed by 1st trimester US Ultrasounds: normal 1st trimester US and normal mid trimester US Obstetrical complications: other (Globular placental mass in the first trimester, resolved) Medical complications OB: none Indications Operative indications ( section): previous uterine surgery Preadmission Labs Last OB Lab Results: Blood Type A Positive Today, 06:15 Antibody Screen Negative Today, 06:15 Hct, (36-46) 34.6 % L Today, 06:15 Hgb, (12.0-16.0) 12.5 g/dL Today, 06:15 Hep Bs Antigen, (NEGATIVE) Negative s/c 12/01/24, 12:04 Hepatitis C Antibody, (NEGATIVE) Negative s/c 12/01/24, 12:04 Rubella Antibody, (>15) 46.0 IU/mL 12/01/24, 12:04 VZV IgG Antibody, (Non Reactive) Reactive 12/01/24, 12:04 Glucose 1 Hr 50 gm, (76-139) 108 mg/dL 03/16/25, 15:39 Group B Strep (PCR) Neg for grp b strep 06/14/25, 15:00 -: Chlamydia screen: negative, Gonorrhea screen: negative and Urine: negative -: PAP smear: Normal Genetic Screens: Cell-free DNA: Normal (Normal female) and Alpha-fetoprotein: Normal External Labs -: Urine: negative Prior (ies) Past Pregnancies Del. Date GA/Weeks Labor Lgth Wt Sex Route Outcome Anesthesia Place Delv Breastfeed Preg Comp Name 12/19/21 39.1 9 lb 3 oz Female live - full term [facility] 2+ years [place] 11/16/22 ~8 Delivery Date: 12/19/21 Last Updated by: Humera Terrazas MD Primary elective C section Delivery Date: 11/16/22 Last Updated by: Alejandra Carpenter RN blighted ovum, missed AB, needed Rx ~10 wk to complete, no return of menses for several months after Evaluation Evaluation Baseline heart rate: 135 Variability: Moderate (6-25) monitor accelerations: Present Monitor Decelerations: Absent Status: Category l PFSH Medical History (Updated 04/14/25 @ 10:29 by Humera Terrazas MD) Tremors of nervous system (~03/2021) Anxiety Right ovarian cyst (~03/2020) Kidney stones (~2018) Kidney infection (~2018) UTI (urinary tract infection) (~2018) Gastric peptic ulcer Pneumonia (~1997) Asthma Concussion History of being hospitalized Toes fractured Surgical History (Updated 01/19/25 @ 09:04 by Humera Terrazas MD) History of section (12/19/21) S/P wisdom tooth extraction Family History (Updated 10/31/24 @ 08:10 by Alejandra Carpenter RN) Father H/O alcohol dependence Mother Mental health problem Eczema Carpal tunnel syndrome Grandfather Diabetes mellitus Cancer Prostate cancer CVA (cerebral vascular accident) Family disruption due to marital estrangement Grandmother Heavy smoker Spina bifida Diabetes mellitus Dementia Grandfather Hypertension Hyperlipidemia Diabetes mellitus Myocardial infarction Cardiac anomaly Grandmother Cancer Late gastric cancer Sister Hypertension induced hypertension Carpal tunnel syndrome Eczema Sister Spina bifida Eczema Brother Asthma Obesity Family/Other Obesity H/O alcohol dependence Hypertension Aunt Myocardial infarction Social History marital status: unmarried,living together number of children: 1 household members: significant other lives independently: Yes caregiver/support person: Yes housing: house pets and animals: Yes (cat, dog, hamster ) education level: college occupational status: employed current occupational exposures/hazards: Yes luis carlos/restorationism: [employer] special luis carlos needs: No travel history: over 6 months ago seatbelt use: always helmet use: Yes water heater temp set < 120 deg: Yes working smoke detector in home: Yes fire extinguisher in home: Yes carbon monox detector in home: Yes firearms in home: Yes firearms unloaded and locked: Yes do you feel safe at home: Yes Smoking Status: Never smoker second hand exposure: No alcohol intake: former substance use type: does not use during the past year weight has: other well-balanced diet: daily or most days daily servings fruits/ve or more times/day caffeine: Yes (stopped Red Bull since becoming ) Type(s) of exercise: walking Meds Home Medications and Allergies Home Medications ?Medication ?Instructions ?Recorded ?Confirmed ?Type prenat.vits,noemi,dni-mvht-yzric 1 tab PO DAILY 06/03/21 06/22/25 History ferrous sulfate 137 mg (45 mg 137 mg PO DAILY 06/22/25 06/22/25 History iron) tablet,extended release (Slow Fe) Allergies Allergy/AdvReac Type Severity Reaction Status Date / Time [place] And Derivatives Allergy Intermediate Lips Verified 06/22/25 06:18 swollen and burning. Hives. OB Exam Narrative Exam Narrative: Generally: Patient is sitting up in bed, no acute distress Lungs: Clear to auscultation bilaterally Cardiovascular: Regular rate and rhythm Fundal height: 39 cm Estimated weight: 8-1/2 lb Extremities: No edema Objective Labs 06/22/25 06:15 Labs: Laboratory Results - last 24 hr 06/22/25 06:15 WBC 10.3 RBC 3.82 L Hgb 12.5 Hct 34.6 L MCV 90.7 MCH 32.6 MCHC 36.0 RDW 12.9 Plt Count 192 Neut % (Auto) 70.5 Lymph % (Auto) 19.3 L Teller % (Auto) 8.0 Eos % (Auto) 1.1 L Baso % (Auto) 1.1 Neut # (Auto) 7300 H Lymph # (Auto) 2000 Teller # (Auto) 800 Eos # (Auto) 100 Baso # (Auto) 100 Assessment and Plan Assessment and Plan Assessment and Plan narrative: Assessment: 24-year-old 3 para 1 at 39 weeks gestation with a previous section Desires permanent sterilization Keloid scar Plan: Repeat low-transverse section Bilateral salpingectomy Revision of scar The risks, benefits, and alternatives to the procedure were explained to the patient. The risks including bleeding, infection, injury to the bowel, bladder, or ureters. She understands these risks and agrees to proceed. A full par Q was held and consent form was signed. Time-Based Coding :: [TOTAL MINUTES] spent with patient and on the chart (including review of chart, obtaining history, exam, reviewing outside data, placing orders, documenting exam and treatment plan, and counseling patient) on [DATE].
--- NOTE | 2025-06-22 07:29 | PM.PREOP ---
Pre-operative Note Interval Note History & Physical reviewed/Exam performed by Physician: Yes Changes to H&P: No H&P completed within 30 days and has changed as indicated here:: 06/22/25
[2025-06-22] MEDS: CITRIC ACID/SODIUM CITRATE 15 ML SOLUTION 30 ML PO (07:33)
[2025-06-22] MEDS: CEFAZOLIN 2 GM/100 ML PREMIX 100 ML IV (07:45)
--- NOTE | 2025-06-22 08:23 | SUR.OPER ---
Supine on padded OR bed, head on pillow, arms on padded arm boards at <90 degrees abduction, legs uncrossed, safety belt at thigh, tape over blanket over lower legs, bump under right hip
[2025-06-22] MEDS: TRIAMCINOLONE 40 MG/ML VIAL IM (08:29)
[2025-06-22 09:15] VITALS: BP 92/53; PULSE 65; RESP 10; TEMP 36.1; O2SAT 100
[2025-06-22 09:20] VITALS: BP 102/63; PULSE 70; RESP 21; O2SAT 100
[2025-06-22 09:25] VITALS: BP 102/65; PULSE 64; RESP 17; O2SAT 96
[2025-06-22 09:30] VITALS: BP 103/60; PULSE 66; RESP 20; TEMP 36.3; O2SAT 96
--- NOTE | 2025-06-22 09:31 | PM.OBCS.1 ---
Operative Date/Time/Diagnoses Date of procedure: 06/22/25 Time of procedure: 09:31 Pre-op diagnosis: 39 weeks gestation Previous section Keloid scar Desires permanent sterilization Post-op diagnosis: same Procedure & Clinicians Procedure: Repeat low transverse section Bilateral salpingectomy Keloid scar revision Same procedure(s) as scheduled: Yes Indications: 24-year-old 3 para 1 at 39 weeks gestation with a previous section. Patient desires permanent sterilization. Patient's last section resulted in a keloid scar. Surgeon: Humera Terrazas Click Yes if Unassisted: No Transportation Project Manager: Trish Calixto Reason for Transportation Project Manager: The administrative assistant front desk was necessary to retract upon entry into the abdomen and uterus. She assisted with delivery with fundal pressure. She assisted with closure with retraction, clipping of suture, and closure of the contralateral fascia. Anesthesia Type: Spinal (With Duramorph) Operative Notes Findings: Live female infant in the MATTHEW presentation Normal tubes and ovaries Keloid scar Placenta with a three-vessel cord Closure Type: primary Specimen(s): cord blood and tubes/segments of tubes Intraoperative meds administered: Acetaminophen, Duramorph, Ketorolac and Pitocin Applied: Catheter (To continuous drainage) Estimated Blood Loss (mL): 150 Blood products transfused: none Procedure in detail: The patient was taken to the operating room where she was placed in the seated position. Spinal anesthesia with Duramorph was administered. The patient was then placed in the dorsal supine position with a leftward tilt. She was prepped and draped in the usual sterile fashion. A timeout was performed. After spinal analgesia was found to be adequate, an elliptical incision was made around the previous incision and the skin removed. The incision was then carried down to the fascia with the scalpel. The fascia was nicked in the midline, and the incision extended bilaterally with the Fry scissors. The superior aspect of the fascial incision was grasped with a Irving clamps, elevated, and the underlying rectus muscles dissected off sharply and bluntly. Attention was then turned to the inferior aspect of this incision which in a similar fashion was grasped with a Irving clamps, elevated, and the underlying rectus muscles dissected off sharply and bluntly. The rectus muscles were in the midline. The peritoneum was identified, grasped between 2 hemostats, and entered sharply with the Metzenbaum scissors. This incision was extended superiorly and inferiorly with good visualization of the bladder. The bladder blade was inserted. The vesicouterine peritoneum was identified, grasped with the pickup, and entered sharply with the Metzenbaum scissors. This incision was extended bilaterally, and the bladder flap was created digitally. The bladder blade was reinserted. The lower uterine segment was incised in a transverse fashion with the scalpel. Upon entering the amniotic sac there was moderate amount of clear amniotic fluid. The 's head was delivered without difficulty. The nose and mouth were suctioned with bulb suction. The remainder of the body delivered without difficulty. The cord was double clamped and cut after 1 minute. The infant was handed off to waiting RN and RT. Pitocin was given in the IV fluids. The placenta was delivered by expression. The uterus was cleared of all clots and debris. The uterine incision was repaired with #1 chromic in a running interlocking fashion, and a second layer the same suture was used for an imbricating layer. Hemostasis was achieved. The tubes and ovaries were examined and were found to be normal. The left tube was grasped with a Spooner and using the short power seal, the mesosalpinx was cauterized and cut all the way to the cornua of the uterus. The tube was amputated at the cornua. This was repeated on the patient's right tube. The tubes were sent off for pathology. The gutters were cleared of all clots and debris. The bladder flap was reapproximated using 2-0 Vicryl in a running fashion. The parietal peritoneum was closed using 2-0 Vicryl in a running fashion. The fascia was reapproximated using 0 Vicryl in a running fashion. The subcutaneous layer was copiously irrigated with warm normal saline. 5 simple interrupted sutures of 3-0 Vicryl were placed to reapproximate the subcutaneous layer. The skin was closed with 4-0 Monocryl in a subcuticular fashion. Steri-Strips were placed. An Aquacel dressing was placed. The uterus was expressed of a small amount of old blood. Sponge, lap, and instrument counts were correct x-2. The patient tolerated the procedure well, and was taken to PACU in stable condition. Complications: none [place] Baby 1: Delivery Date: 06/22/25 Delivery Time: 08:26 Infant Gender: Female Presentation: vertex Position: Left Occiput Anterior Placental Delivery Description: Expressed Cord Vessel Description: 3 Vessels and Clamped/Cut (After 1 minute) score (1 min): 9 score (5 min): 9 weight: 7 lb 12.9 oz Post-operative Condition: stable Disposition: PACU Aftercare: routine postop
[2025-06-22 09:40] VITALS: BP 97/52; PULSE 58; RESP 27; O2SAT 97
[2025-06-22] MEDS: KETOROLAC 30 MG/ML VIAL IV ×3 (10:32→22:24)
[2025-06-22] MEDS: ACETAMINOPHEN 325 MG TABLET 650 MG PO ×3 (10:33→22:25)
[2025-06-22] MEDS: ONDANSETRON 4 MG/2 ML INJ IV (15:06)
[2025-06-22] MEDS: NALBUPHINE 20 MG/ML AMPUL 5 MG IV (20:11)
[2025-06-23] MEDS: ACETAMINOPHEN 325 MG TABLET 650 MG PO (04:41)
[2025-06-23] MEDS: KETOROLAC 30 MG/ML VIAL IV (04:41)
[2025-06-23 06:16] LABS: Hematocrit 30.0 % (36-46); Hemoglobin 10.9 g/dL (12.0-16.0)
== END 2025-06-23 09:10 | disposition home or self-care (01) | DRG 539 ==
PROVIDERS: Admitting Provider Obstetrics & Gynecology; PCP Physician Assistant; Referring Provider Obstetrics & Gynecology; Visit Provider Obstetrics & Gynecology
PROC: 10D00Z1 Extraction of Products of Conception, Low, Open Approach (ICD-10-PCS; CPT 59514; principal; 2025-06-22 07:45)
DX: O34.211 Maternal care for low transverse scar from previous cesarean delivery (principal); L91.0 Hypertrophic scar; Z3A.39 39 weeks gestation of pregnancy; Z37.0 Single live birth; Z30.2 Encounter for sterilization
CPT/HCPCS: 36415; 59050; 85014; 85018; 85025; 86850; 86900; 86901; J0690; J1885; J2274; J2300; J2405; J2765; J3010

== ENCOUNTER 2025-06-27 08:48 | Emergency (ER) | payer OTHER, SELFPAY ==
[2025-06-27 09:05] VITALS: BP 125/79; PULSE 93; RESP 17; TEMP 36.6; O2SAT 98; BMI 32.2
--- NOTE | 2025-06-27 09:32 | ED.WOUNDLAC ---
HPI - Wound/Laceration General Chief Complaint: Wound/Laceration Stated Complaint: pain after . 5 days ago Time Seen by Provider: 06/27/25 08:54 Source: patient Mode of arrival: Family Vehicle History of Present Illness HPI narrative: 24-year-old female status post 5 days ago presents this morning with gush of clear liquid fluid from her vagina and lower abdominal cramping with 1 episode for which she has not soaked more than 1 pad and no blood noted. She denies fever, but feels hot and flushed, denies chills, bodyache, urinary complaints, cough, sore throat, nausea, vomiting, chest pain, shortness of breath, chest pain. Other than what is stated 14 point review of system is negative. Related Data Home Medications ?Medication ?Instructions ?Recorded ?Confirmed prenat.vits,noemi,xji-gmxk-kaipy 1 tab PO DAILY 06/03/21 06/22/25 ferrous sulfate 137 mg (45 mg 137 mg PO DAILY 06/22/25 06/22/25 iron) tablet,extended release (Slow Fe) Allergies Allergy/AdvReac Type Severity Reaction Status Date / Time [place] And Derivatives Allergy Intermediate Lips Verified 06/27/25 09:06 swollen and burning. Hives. Review of Systems Review of Systems ROS Unobtainable: All systems reviewed & are unremarkable except as noted in HPI and below Patient History Medical History (Updated 06/27/25 @ 11:00 by Alex Rowland, DO) Tremors of nervous system (~03/2021) Anxiety Right ovarian cyst (~03/2020) Kidney stones (~2018) Kidney infection (~2018) UTI (urinary tract infection) (~2018) Gastric peptic ulcer Pneumonia (~1997) Asthma Concussion History of being hospitalized Toes fractured Surgical History (Updated 01/19/25 @ 09:04 by Humera Terrazas MD) History of section (12/19/21) S/P wisdom tooth extraction Family History (Updated 10/31/24 @ 08:10 by Alejandra Carpenter RN) Father H/O alcohol dependence Mother Mental health problem Eczema Carpal tunnel syndrome Grandfather Diabetes mellitus Cancer Prostate cancer CVA (cerebral vascular accident) Family disruption due to marital estrangement Grandmother Heavy smoker Spina bifida Diabetes mellitus Dementia Grandfather Hypertension Hyperlipidemia Diabetes mellitus Myocardial infarction Cardiac anomaly Grandmother Cancer Late gastric cancer Sister Hypertension induced hypertension Carpal tunnel syndrome Eczema Sister Spina bifida Eczema Brother Asthma Obesity Family/Other Obesity H/O alcohol dependence Hypertension Aunt Myocardial infarction Social History marital status: unmarried,living together number of children: 1 household members: significant other lives independently: Yes caregiver/support person: Yes housing: house pets and animals: Yes (cat, dog, hamster ) education level: college occupational status: employed current occupational exposures/hazards: Yes luis carlos/congregation: [employer] special luis carlos needs: No travel history: over 6 months ago seatbelt use: always helmet use: Yes water heater temp set < 120 deg: Yes working smoke detector in home: Yes fire extinguisher in home: Yes carbon monox detector in home: Yes firearms in home: Yes firearms unloaded and locked: Yes do you feel safe at home: Yes Smoking Status: Never smoker second hand exposure: No alcohol intake: former substance use type: does not use during the past year weight has: other well-balanced diet: daily or most days daily servings fruits/ve or more times/day caffeine: Yes (stopped Red Bull since becoming ) Type(s) of exercise: walking Smoking Status: Never smoker Exam Narrative Exam Narrative: GENERAL: [24] year old patient appears stated age. Well-developed patient, in mild distress. HEAD: Atraumatic. Normocephalic. EYES: Pupils equal round and reactive. Extraocular motions intact. No scleral icterus. No injection or drainage. ENT: Nose without bleeding, purulent drainage. Throat without erythema, tonsillar hypertrophy or exudate. Airway patent. NECK: Trachea midline. Non tender CARDIOVASCULAR: Regular rate and rhythm without murmurs, gallops, or rubs. RESPIRATORY: Clear to auscultation. Breath sounds equal bilaterally. No wheezes, rales, or rhonchi. GASTROINTESTINAL: Abdomen soft, non-tender, nondistended. EXTREMITIES: No edema or joint tenderness. BACK: Nontender without deformity or crepitance. No flank tenderness. NEURO: AOx3. SKIN: No rash or erythema of visible areas Initial Vital Signs Initial Vital Signs: Vital Signs Temperature 97.8 F 06/27/25 09:05 Pulse Rate 93 H 06/27/25 09:05 Respiratory Rate 17 06/27/25 09:05 Blood Pressure 125/79 06/27/25 09:05 Pulse Oximetry 98 06/27/25 09:05 Oxygen Delivery Method Room Air 06/27/25 09:05 Course Orders Ordered: ED Orders 06/27/25 09:32 Urine Microscopic Stat 06/27/25 09:40 Complete Blood Count AUTO DIFF Stat Comprehensive Metabolic Panel Stat Lipase Stat 06/27/25 10:29 CT abdomen pelvis w con Stat Ondansetron HCl (Ondansetron 4 Mg/2 Ml Inj) 4 mg IV NOW PRN PRN Reason: Nausea And Vomiting Ondansetron HCl (Ondansetron 4 Mg Odt) 4 mg PO NOW PRN PRN Reason: Nausea And Vomiting Vital Signs Vital signs: Vital Signs - 8 hr 06/27/25 09:05 Temperature 97.8 F Pulse Rate 93 H Respiratory Rate 17 Blood Pressure 125/79 Pulse Oximetry 98 Oxygen Delivery Method Room Air MDM - Wound/Laceration Lab Data 06/27/25 09:40 06/27/25 09:40 Labs: Lab Results 06/27/25 06/27/25 Range/Units 09:32 09:40 WBC 10.0 (4.5-11.0) X10^3/uL RBC 3.50 L (4.0-5.2) X10^6/uL Hgb 11.3 L (12.0-16.0) g/dL Hct 32.3 L (36-46) % MCV 92.3 (80-100) fL MCH 32.3 (26-34) PG MCHC 35.1 (30-36) % RDW 12.7 (11.6-14.8) % Plt Count 248 (150-400) X10^3/uL Neut % (Auto) 83.4 H (50-75) % Lymph % (Auto) 8.7 L (25-40) % [place] % (Auto) 6.2 (3-14) % Eos % (Auto) 1.1 L (2-4) % Baso % (Auto) 0.6 (0-2) % Neut # (Auto) 8300 H (3024-8013) /uL Lymph # (Auto) 900 L (2125-7866) /uL Davidson # (Auto) 600 (0-900) /uL Eos # (Auto) 100 (0-450) /uL Baso # (Auto) 100 (0-100) /uL Sodium 139 (137-145) mmol/L Potassium 3.4 (3.4-5.1) mmol/L Chloride 109 H (98-107) mmol/L Carbon Dioxide 23 (22-32) mmol/L BUN 11 (7-17) mg/dL Creatinine 0.52 (0.52-1.04) mg/dL Estimated GFR > 60 (>60) mL/min BUN/Creatinine Ratio 21.2 (6-22) Glucose 121 H (70-99) mg/dL Calcium 8.5 (8.4-10.2) mg/dL Total Bilirubin 1.0 (0.2-1.3) mg/dL AST 21 (14-36) IU/L ALT 20 (<35) IU/L Alkaline Phosphatase 77 (38-126) U/L Total Protein 6.4 (6.3-8.2) g/dL Albumin 3.6 (3.5-5.0) g/dL Globulin 2.8 (1.7-4.1) g/dL Albumin/Globulin Ratio 1.3 (1.0-2.8) Lipase 52 (23-300) U/L Urine RBC 1-5/hpf (0-5/HPF) Urine WBC 0-1/hpf (0-5/HPF) Ur Squamous Epith Cells 1-5 /hpf (0-5/HPF) Amorphous Sediment 1+ Urine Bacteria None seen (None) Ur Culture Indicated? Cult not indicated Vol Urine Centrifuged 10ml (spun) Imaging Data CT scan - abdomen/pelvis: Radiologist's Impression: [place] [address] CT Scan Report Signed Patient: Elizabeth Morales MR#: [id number] : 2000 Acct:[id number] Age/Sex: 24 / F Date of Service: 06/27/25 Loc: ED Accession Number: [id number] Procedure: CT abdomen pelvis w con Ordering Provider: Alex Rowland D.O. PROCEDURE: CT ABDOMEN PELVIS W CON INDICATIONS: abd pain s/p c-sec TECHNIQUE: After the administration of intravenous contrast, axial sections acquired from the lung bases to the pubic symphysis. Coronal and sagittal reformats were performed. For radiation dose reduction, the following was used: automated exposure control, adjustment of mA and/or kV according to patient size. COMPARISON: None. FINDINGS: Image quality: Diagnostic. Lower Chest: No significant findings. ABDOMEN: Liver: No solid mass. Gallbladder: No radiopaque gallstones or wall thickening. Biliary ducts: No biliary dilation. Pancreas: No ductal dilation. Spleen: Size is within normal limits. Adrenal Glands: No adrenal nodules. Kidneys and Ureters: No hydronephrosis. No solid mass. Simple appearing left renal cyst is seen measures 2.1 x 2 cm in size. No complex renal cystic lesion which requires follow up. Stomach and Bowel: There is no bowel obstruction. No abnormal bowel wall thickening or mesenteric fat stranding. No abscess collection. Peritoneum: No abnormal intraperitoneal fluid. No free air. Ventral Wall: No significant ventral hernia. Hyperdensity involving bilateral enlarged rectus muscles with overlying fat stranding. There is a midline hyperdense collection adjacent to anterior wall of uterus and is communicating with midline anterior abdominal wall measures 3.8 x 3.4 x 3.9 cm in size series 2, image 128 and series 5 image 78. Abdominal Nodes: No retroperitoneal or mesenteric adenopathy by size criteria. Vessels: Aorta and inferior vena cava are normal in size. PELVIS: Pelvic Organs: Bulky appearing uterus with heterogeneous uterine wall density consistent with post part in uterus. Bladder: No bladder wall thickening, accounting for underdistention. Pelvic Nodes: No enlarged lymph nodes. Miscellaneous: No inguinal hernias are seen. Bones: No aggressive osseous abnormality. IMPRESSION: 1. uterus with suggestion of intramuscular hematoma involving bilateral lower rectus abdominus muscles and likely postsurgical hematoma in midline lower abdomen/pelvis adjacent to anterior wall of lower uterine segment as above. 2. No discrete drainable peripherally enhancing abscess collection. No peritoneal free fluid or free air. No abnormal bowel wall thickening. MDM Narrative Medical decision making narrative: All lab work, vital signs, nurse triage note, medication list, previous ER visits, and all imaging studies reviewed. CT scan showed uterus with suggest an intramuscular hematoma involving bilateral lower rectus abdominal muscle and likely postsurgical hematoma in midline lower abdominal pelvis adjacent to an anterior wall of lower uterine segment as above. No discrete. Drainable peripheral enhancing abscess collection no peritoneal free. No Fluid or free air abnormal bowel wall thickening. Case discussed with Dr. Terrazas who will follow up with her on for appointment. Discharge Plan Departure Patient Disposition: Home Clinical Impression: Abdominal pain Qualifiers: Abdominal location: generalized Qualified Code(s): R10.84 - Generalized abdominal pain Instructions: DI for Abdominal Pain-Adult Activity Restrictions/Additional Instructions: Return with new or worsening. Follow up with Dr. Terrazas at your appointment on . Prescriptions: No Action prenat.vits,noemi,mhg-fxti-kijci Tablet 1 tab PO DAILY Slow Fe 137 mg (45 mg iron) tablet extended release 137 mg PO DAILY Referrals: Leia Thomas PA-C [Primary Care Provider, Medical] Stand Alone Forms: Patient Portal/API
[2025-06-27 09:51] LABS: Add Manual Diff / Slide Review NO; Hematocrit 32.3 % (36-46); Hemoglobin 11.3 g/dL (12.0-16.0); Lymphocytes Absolute Auto 900 /uL (1100-4500); Mean Corpuscular HGB Conc 35.1 % (30-36); Mean Corpuscular Hemoglobin 32.3 PG (26-34); Mean Corpuscular Volume 92.3 fL (80-100); Platelet Count 248 X10^3/uL (150-400)
[2025-06-27 10:02] LABS: Alanine Aminotransferase 20 IU/L (<35); Albumin 3.6 g/dL (3.5-5.0); Albumin Globulin Ratio 1.3 (1.0-2.8); Alkaline Phosphatase 77 U/L (38-126); Blood Urea Nitrogen 11 mg/dL (7-17); Calcium 8.5 mg/dL (8.4-10.2); Carbon Dioxide 23 mmol/L (22-32); Chloride 109 mmol/L (98-107); Estimated Glomerular Filt Rate > 60 mL/min (>60); Globulin 2.8 g/dL (1.7-4.1); Glucose 121 mg/dL (70-99); HEMOLYSIS < 15 (0-50); Lipase 52 U/L (23-300); Potassium 3.4 mmol/L (3.4-5.1); Sodium 139 mmol/L (137-145); Total Protein 6.4 g/dL (6.3-8.2)
[2025-06-27 10:17] LABS: Culture Indicated Urine Cult Not Indicated
--- NOTE | 2025-06-27 10:29 | DI.CT.S_ITS ---
PROCEDURE: CT ABDOMEN PELVIS W CON INDICATIONS: abd pain s/p c-sec TECHNIQUE: After the administration of intravenous contrast, axial sections acquired from the lung bases to the pubic symphysis. Coronal and sagittal reformats were performed. For radiation dose reduction, the following was used: automated exposure control, adjustment of mA and/or kV according to patient size. COMPARISON: None. FINDINGS: Image quality: Diagnostic. Lower Chest: No significant findings. ABDOMEN: Liver: No solid mass. Gallbladder: No radiopaque gallstones or wall thickening. Biliary ducts: No biliary dilation. Pancreas: No ductal dilation. Spleen: Size is within normal limits. Adrenal Glands: No adrenal nodules. Kidneys and Ureters: No hydronephrosis. No solid mass. Simple appearing left renal cyst is seen measures 2.1 x 2 cm in size. No complex renal cystic lesion which requires follow up. Stomach and Bowel: There is no bowel obstruction. No abnormal bowel wall thickening or mesenteric fat stranding. No abscess collection. Peritoneum: No abnormal intraperitoneal fluid. No free air. Ventral Wall: No significant ventral hernia. Hyperdensity involving bilateral enlarged rectus muscles with overlying fat stranding. There is a midline hyperdense collection adjacent to anterior wall of uterus and is communicating with midline anterior abdominal wall measures 3.8 x 3.4 x 3.9 cm in size series 2, image 128 and series 5 image 78. Abdominal Nodes: No retroperitoneal or mesenteric adenopathy by size criteria. Vessels: Aorta and inferior vena cava are normal in size. PELVIS: Pelvic Organs: Bulky appearing uterus with heterogeneous uterine wall density consistent with post part in uterus. Bladder: No bladder wall thickening, accounting for underdistention. Pelvic Nodes: No enlarged lymph nodes. Miscellaneous: No inguinal hernias are seen. Bones: No aggressive osseous abnormality. IMPRESSION: 1. uterus with suggestion of intramuscular hematoma involving bilateral lower rectus abdominus muscles and likely postsurgical hematoma in midline lower abdomen/pelvis adjacent to anterior wall of lower uterine segment as above. 2. No discrete drainable peripherally enhancing abscess collection. No peritoneal free fluid or free air. No abnormal bowel wall thickening. Dictated by: Wai Lopez M.D. on 06/27/2025 at 10:32 Approved by: Wai Lopez M.D. on 06/27/2025 at 10:36
--- NOTE | 2025-06-27 11:18 | INF.NOTE ---
Pressure behind incision yesterday, now relieved. Clear liquid in pad yesterday. See triage note.
[2025-06-27 11:20] VITALS: BP 122/77; PULSE 88; RESP 17; O2SAT 99
== END 2025-06-27 11:25 | disposition home or self-care (01) ==
PROVIDERS: Emergency Provider Family Medicine; PCP Physician Assistant
DX: O90.89 Other complications of the puerperium, not elsewhere classified (principal); R10.30 Lower abdominal pain, unspecified
CPT/HCPCS: 36415; 74177; 80053; 81003; 81015; 83690; 85025; 99283; 99284; Q9967

== ENCOUNTER → 2025-08-04 09:29 | Outpatient (CLI) | payer OTHER, SELFPAY | LOC: LAB 09:31 | PROVIDERS: PCP Physician Assistant; Visit Provider Obstetrics & Gynecology | DX: R30.0 Dysuria (principal) | CPT/HCPCS: 87086 ==